=== PATIENT | male | born 1940 | race Caucasian/White ===

== ENCOUNTER 2024-05-01 23:33 | Inpatient (IN) | payer MEDICARE, MEDICAID ==
[~2024-05-01] VITALS: Ht 177.8 cm; Wt 79.0 kg
[2024-05-01 23:49] LABS: BASOPHILS % (AUTO) 0.6 % (0-1); EOSINOPHILS # (AUTO) 0.2 X10'3 (0-0.9); LYMPHOCYTES # (AUTO) 2.4 X10'3 (1.1-4.8); LYMPHOCYTES % (AUTO) 34.5 % (21-51); MEAN CORPUSCULAR HEMOGLOBIN 28.1 PG (27.0-31.0); MEAN CORPUSCULAR HGB CONC 31.3 g/dL (33.0-36.5); MEAN CORPUSCULAR VOLUME 89.8 FL (78-98); MEAN PLATELET VOLUME 7.1 FL (7.4-10.4); MONOCYTES # (AUTO) 0.7 X10'3 (0-0.9); MONOCYTES % (AUTO) 10.3 % (2-12); NEUTROPHILS # (AUTO) 3.6 X10'3 (1.8-7.7); NEUTROPHILS % (AUTO) 51.6 % (42-75); PLATELET COUNT 205 X10'3 (140-440); RED BLOOD COUNT 3.56 X10'6 (4.70-6.10); RED CELL DISTRIBUTION WIDTH 19.4 % (11.5-14.5)
[2024-05-02] VITALS (12 sets, daily range): BP systolic 130–143; BP diastolic 54–76; PULSE 88–107; RESP 15–20; TEMP 97.8–97.9; O2SAT 95–100
[2024-05-02 00:04] LABS: ALANINE AMINOTRANSFERASE 18 U/L (12-78); ALBUMIN 2.9 G/DL (3.4-5.0); ALBUMIN/GLOBULIN RATIO 0.7 (1.1-1.5); ALKALINE PHOSPHATASE 98 IU/L (46-116); ANION GAP 2 (8-16); ASPARTATE AMINO TRANSFERASE 12 U/L (10-37); BILIRUBIN,TOTAL 0.5 MG/DL (0.1-1.0); BLOOD UREA NITROGEN 16 MG/DL (7-18); BUN/CREATININE RATIO 15.8 (10.0-20.0); CALCIUM 9.2 MG/DL (8.5-10.1); CHLORIDE 104 MMOL/L (99-107); CREATININE 1.01 MG/DL (0.60-1.10); GLUCOSE 142 MG/DL (70-104); POTASSIUM 4.7 MMOL/L (3.5-5.1); SODIUM 141 MMOL/L (135-145); TOTAL CARBON DIOXIDE 35.1 MMOL/L (24-32); TOTAL PROTEIN 6.8 G/DL (6.4-8.2); eCRCL 59 ML/MIN; eGFR 71 ML/MIN
[2024-05-02 00:10] LABS: PRO BRAIN NATRIURETIC PEPTIDE 593 PG/ML (0-450)
[2024-05-02 01:44] LABS: ANISOCYTOSIS 2+; PLATELET ESTIMATE NORMAL
[2024-05-02 01:45] LABS: ELLIPTOCYTES FEW; SCHISTOCYTES FEW
[2024-05-02] MEDS: methylPREDNISolone sod succ 125mg/2ml vial IV ONE (02:07)
[2024-05-02] MEDS: ipratropium/albuterol 3ml nebule NEB ONE (02:10)
[2024-05-02] MEDS ORDERED: potassium Cl 40MEQ/1/2NS 520ml 520 ML IV PRN (03:45)
[2024-05-02] MEDS ORDERED: magnesium sulf-water 4G/100mL 100 ML IV PRN (03:45)
[2024-05-02] MEDS ORDERED: magnesium Cl slow-release 64mg tablet PO PRN (03:45)
[2024-05-02] MEDS ORDERED: potassium Cl 20 mEq SR tablet PO PRN ×2 (03:45)
[2024-05-02] MEDS ORDERED: magnesium sulf-water 2g/50mL 50 ML IV PRN (03:45)
[2024-05-02] MEDS ORDERED: mag hydrox/Alum hydrox/simeth 30ml oral suspension PO PRN (03:45)
[2024-05-02] MEDS ORDERED: magnesium hydroxide 30ml (MOM) UD suspension PO PRN ×2 (03:45→15:30)
[2024-05-02] MEDS: furosemide 10 MG/1 ML 10ml inj IV SCH (04:21)
[2024-05-02] MEDS: docusate sod 100mg capsule PO SCH ×2 (07:20→15:30)
[2024-05-02] MEDS: K and/or MAG REPLACEMENT MC SCH (07:22)
[2024-05-02] MEDS: heparin, porcine 5000 units/ml vial SQ SCH (07:26)
[2024-05-02] MEDS: predniSONE 20 mg tablet PO SCH (07:26)
[2024-05-02 07:50] LABS: APTT 27 SECONDS (22-32); PROTHROMBIN TIME 10.2 SECONDS (9.0-12.0)
[2024-05-02 07:55] LABS: MAGNESIUM 1.6 MG/DL (1.5-2.4)
[2024-05-02 08:05] LABS: % IRON SATURATION 5 % (11-46); HEMOGLOBIN A1C 6.2 % (4.5-6.2); IRON 17 UG/DL (53-167); TOTAL IRON BINDING CAPACITY 358 UG/DL (259-388)
[2024-05-02 08:23] LABS: FERRITIN 28 NG/ML (26-388)
[2024-05-02] MEDS: ipratropium/albuterol 3ml nebule NEB SCH (09:01)
[2024-05-02] MEDS: MULTIVIT-MIN/FERROUS GLUCONATE 9 MG/15 ML LIQUID PO SCH (15:35)
[2024-05-02] MEDS ORDERED: UNABLE TO OBTAIN (16:45)
[2024-05-02] MEDS: magnesium citrate 296ml oral solution PO ONE (19:47)
[2024-05-02] MEDS ORDERED: METF-436 PO (21:02)
[2024-05-02] MEDS ORDERED: CARV-49 PO (21:02)
[2024-05-02] MEDS: acetaminophen 325mg tablet PO PRN (21:20)
[2024-05-02] MEDS: carvedilol 6.25mg tablet PO ONE (22:52)
[2024-05-03] VITALS (15 sets, daily range): BP systolic 106–115; BP diastolic 49–68; PULSE 65–102; RESP 16–21; TEMP 97.7–98.3; O2SAT 92–97
[2024-05-03 06:37] LABS: BASOPHILS % (AUTO) 0.1 % (0-1); EOSINOPHILS % (AUTO) 0.2 % (0-6); HEMATOCRIT 30.2 % (42.0-52.0); HEMOGLOBIN 9.6 g/dl (14.0-17.9); LYMPHOCYTES % (AUTO) 23.5 % (21-51); MEAN CORPUSCULAR HEMOGLOBIN 28.1 PG (27.0-31.0); MEAN CORPUSCULAR HGB CONC 31.9 g/dL (33.0-36.5); MEAN PLATELET VOLUME 7.7 FL (7.4-10.4); MONOCYTES # (AUTO) 0.9 X10'3 (0-0.9); MONOCYTES % (AUTO) 10.7 % (2-12); NEUTROPHILS # (AUTO) 5.4 X10'3 (1.8-7.7); NEUTROPHILS % (AUTO) 65.5 % (42-75); PLATELET COUNT 221 X10'3 (140-440); RED BLOOD COUNT 3.43 X10'6 (4.70-6.10); RED CELL DISTRIBUTION WIDTH 19.1 % (11.5-14.5); WHITE BLOOD COUNT 8.3 X10'3 (4.5-11.0)
[2024-05-03 06:54] LABS: ALANINE AMINOTRANSFERASE 16 U/L (12-78); ALBUMIN 2.8 G/DL (3.4-5.0); ALBUMIN/GLOBULIN RATIO 0.7 (1.1-1.5); ALKALINE PHOSPHATASE 82 IU/L (46-116); ANION GAP 1 (8-16); ASPARTATE AMINO TRANSFERASE 13 U/L (10-37); BILIRUBIN,TOTAL 0.5 MG/DL (0.1-1.0); BLOOD UREA NITROGEN 26 MG/DL (7-18); BUN/CREATININE RATIO 28.9 (10.0-20.0); CALCIUM 9.4 MG/DL (8.5-10.1); CHLORIDE 100 MMOL/L (99-107); CHOLESTEROL 123 MG/DL (0-200); GLUCOSE 120 MG/DL (70-104); HDL CHOLESTEROL 61 MG/DL (35-60); LDL CHOLESTEROL 51 MG/DL (50-100); MAGNESIUM 2.2 MG/DL (1.5-2.4); POTASSIUM 4.9 MMOL/L (3.5-5.1); SODIUM 138 MMOL/L (135-145); TOTAL CARBON DIOXIDE 37.1 MMOL/L (24-32); TOTAL PROTEIN 6.6 G/DL (6.4-8.2); TRIGLYCERIDES 75 MG/DL (20-135); eCRCL 66 ML/MIN; eGFR 81 ML/MIN
[2024-05-03] MEDS: carvedilol 6.25mg tablet PO SCH (09:15)
[2024-05-03] MEDS ORDERED: acetaminophen 325mg tablet PO PRN (15:30)
[2024-05-03] MEDS: ondansetron/PF 4mg/2ml inj IV PRN (15:39)
[2024-05-03] MEDS: metFORMIN 500mg tablet PO SCH (19:34)
[2024-05-04] VITALS (9 sets, daily range): BP systolic 104–109; BP diastolic 61–63; PULSE 64–100; RESP 16–20; TEMP 97.1–97.4; O2SAT 91–98
[2024-05-04 07:38] LABS: ALANINE AMINOTRANSFERASE 12 U/L (12-78); ALBUMIN 2.7 G/DL (3.4-5.0); ALBUMIN/GLOBULIN RATIO 0.7 (1.1-1.5); ALKALINE PHOSPHATASE 78 IU/L (46-116); ANION GAP 4 (8-16); ASPARTATE AMINO TRANSFERASE 10 U/L (10-37); BILIRUBIN,TOTAL 0.3 MG/DL (0.1-1.0); BLOOD UREA NITROGEN 33 MG/DL (7-18); CALCIUM 9.3 MG/DL (8.5-10.1); CHLORIDE 96 MMOL/L (99-107); CREATININE 1.18 MG/DL (0.60-1.10); GLUCOSE 123 MG/DL (70-104); MAGNESIUM 2.3 MG/DL (1.5-2.4); POTASSIUM 4.7 MMOL/L (3.5-5.1); SODIUM 136 MMOL/L (135-145); TOTAL CARBON DIOXIDE 36.2 MMOL/L (24-32); TOTAL PROTEIN 6.4 G/DL (6.4-8.2); eCRCL 51 ML/MIN; eGFR 59 ML/MIN
[2024-05-04 07:39] LABS: BASOPHILS % (AUTO) 0.2 % (0-1); EOSINOPHILS % (AUTO) 0.3 % (0-6); HEMATOCRIT 30.4 % (42.0-52.0); HEMOGLOBIN 9.6 g/dl (14.0-17.9); LYMPHOCYTES # (AUTO) 2.5 X10'3 (1.1-4.8); LYMPHOCYTES % (AUTO) 29.9 % (21-51); MEAN CORPUSCULAR HEMOGLOBIN 28.1 PG (27.0-31.0); MEAN CORPUSCULAR HGB CONC 31.7 g/dL (33.0-36.5); MEAN CORPUSCULAR VOLUME 88.7 FL (78-98); MEAN PLATELET VOLUME 7.9 FL (7.4-10.4); MONOCYTES # (AUTO) 0.8 X10'3 (0-0.9); MONOCYTES % (AUTO) 8.9 % (2-12); NEUTROPHILS # (AUTO) 5.2 X10'3 (1.8-7.7); NEUTROPHILS % (AUTO) 60.7 % (42-75); PLATELET COUNT 251 X10'3 (140-440); RED BLOOD COUNT 3.42 X10'6 (4.70-6.10); RED CELL DISTRIBUTION WIDTH 18.7 % (11.5-14.5); WHITE BLOOD COUNT 8.5 X10'3 (4.5-11.0)
[2024-05-04] MEDS ORDERED: MULT9LIQ7 PO (08:18)
[2024-05-04] MEDS ORDERED: FURO-150 PO ×2 (08:18→18:02)
[2024-05-04] MEDS ORDERED: PRED10TA23 PO (08:18)
[2024-05-04 09:06] LABS: ANISOCYTOSIS 2+; ELLIPTOCYTES FEW; PLATELET ESTIMATE NORMAL; POIKILOCYTOSIS FEW
[2024-05-04] MEDS ORDERED: IPRA3AMP9 NEB (11:24)
== END 2024-05-04 15:50 | disposition home health service (06) | DRG 189 ==
LOC: ER 23:33 → ED HOLD 05-02 03:52 → EDBEDREQ 05-02 19:06 → ORTHO 4S 05-02 20:30
PROVIDERS: ADMIT Internal Medicine Critical Care Medicine; ATTEND Internal Medicine
DX: J96.21 Acute and chronic respiratory failure with hypoxia (principal); I50.33 Acute on chronic diastolic (congestive) heart failure; J44.1 Chronic obstructive pulmonary disease with (acute) exacerbation; E78.5 Hyperlipidemia, unspecified; D50.8 Other iron deficiency anemias; Z20.822 Contact with and (suspected) exposure to COVID-19; Z99.81 Dependence on supplemental oxygen; Z87.891 Personal history of nicotine dependence
CPT/HCPCS: 36415; 71045; 80053; 80061; 82607; 82728; 83036; 83540; 83550; 83735; 83880; 84132; 84484; 85008; 85025; 85610; 85730; 87081; 87502; 87503; 87811; 93005; 93306; 94640; 94760; 96374; 97116; 97161; 97530; 99285; G0378; J1644; J1940; J2405; J2919; J7512